=== PATIENT | female | born 1960 | race Caucasian/White ===

== ENCOUNTER 2024-05-10 05:02 | Observation (INO) ==
--- NOTE | 2024-03-31 11:23 | PAT Medication Instructions ---
Medication Instructions Date of Service March 31, 2024 Home Medications cholecalciferol (vitamin D3) 125 mcg (5,000 unit) tablet (Vitamin D3) 125 mcg PO QAM d-mannose 500 mg capsule 2,000 mg PO QAM diclofenac sodium 75 mg tablet,delayed release 75 mg PO BID levothyroxine 112 mcg tablet (Synthroid) 112 mcg PO QAM metformin 500 mg tablet 500 mg PO BID omega-3 fatty acids 500 mg capsule 500 mg PO QAM sertraline 50 mg tablet (Zoloft) 75 mg PO QAM ASK your surgeon for instructions diclofenac sodium 75 mg tablet,delayed release 75 mg PO BID STOP taking 2 weeks before surgery omega-3 fatty acids 500 mg capsule 500 mg PO QAM d-mannose 500 mg capsule 2,000 mg PO QAM DO NOT take the morning of surgery cholecalciferol (vitamin D3) 125 mcg (5,000 unit) tablet (Vitamin D3) 125 mcg PO QAM metformin 500 mg tablet 500 mg PO BID Take morning of surgery With a small sip of water, OTHERWISE NOTHING TO EAT OR DRINK AFTER MIDNIGHT: levothyroxine 112 mcg tablet (Synthroid) 112 mcg PO QAM sertraline 50 mg tablet (Zoloft) 75 mg PO QAM Take evening before surgery metformin 500 mg tablet 500 mg PO BID Other Notes If you have any questions please call us at [phone] or [phone] or [phone] or [phone]
--- NOTE | 2024-04-18 12:27 | Anesthesiology Consultation ---
Date of Service April 18, 2024 Assessment & Plan (1) Encounter for pre-operative examination: - Check BSG AM DOS - Infectious disease screening: Per assessment on 04/18/24: No known recent infectious disease contacts or current infectious disease symptoms. - Outpatient joint assessment: Pt currently scheduled for inpatient pathway. If surgeon requests review for outpatient joint pathway, patient is not recommended candidate for outpatient joint program from anesthesia standpoint based on available information. - PCP note (04/21/24): "Yes" patient medically cleared for surgery. Chart Review Chart Review: Acceptable Risk for Surgery and Patient seen in Pre Admission Testing Teaching & Discussion Pre-Anesthesia Teaching/Discussion Notes: Instructed NPO after midnight before surgery,except medications with 15 cc of water. Medication instructions prov ided according to the PAT guidelines. History Surgery Operation Date: 05/10/24 07:00 Proposed Procedures p Left Total Knee Arthroplasty - Real Jean MD Height/Weight Height: 5 ft 2 in Weight: 113.9 kg Allergies Allergy/AdvReac Type Severity Reaction Status Date / Time No Known Allergies Allergy Verified 03/30/24 14:19 Medications Home Medications Medication Instructions Recorded Confirmed Last Taken cholecalciferol (vitamin D3) 125 125 mcg PO QAM 03/30/24 03/30/24 Unknown mcg (5,000 unit) tablet (Vitamin D3) d-mannose 500 mg capsule 2,000 mg PO QAM 03/30/24 03/30/24 Unknown diclofenac sodium 75 mg 75 mg PO BID 03/30/24 03/30/24 Unknown tablet,delayed release levothyroxine 112 mcg tablet 112 mcg PO QAM 03/30/24 03/30/24 Unknown (Synthroid) metformin 500 mg tablet 500 mg PO BID 03/30/24 03/30/24 Unknown omega-3 fatty acids 500 mg capsule 500 mg PO QAM 03/30/24 03/30/24 Unknown sertraline 50 mg tablet (Zoloft) 75 mg PO QAM 03/30/24 03/30/24 Unknown Past Medical History Medical History Anxiety Arthritis Diabetes mellitus, type 2 History of diverticulitis Hypothyroidism Morbid obesity Sleep apnea BIPAP (compliant) Exercise / Class Metabolic Activity III < 4 Walking/Shop/Light housework (one FS (no CP, + SOB)) Past Family History Family History Other No family history of adverse response to anesthesia Past Surgical History Surgical History H/O arthroscopy of right knee H/O sinus surgery H/O total hysterectomy H/O wrist surgery Left History of cardiac cath 2021- Angiographically normal coronary arteries History of carpal tunnel release Right History of section x2 History of cholecystectomy History of colon resection History of colonoscopy [place] teeth removed Past Anesthesia History No Hx of Anesthesia Complications and No Family Hx of Anesthesia Complications History of PONV No Hx of PONV and No Hx of Motion Sickness Social History Smoking Status: Never smoker Do You Dip or Chew Tobacco: No Hx Alcohol Use: Yes alcohol intake frequency: holidays/special occasions only substance use type: does not use Review of Systems Patient denies chest pain, shortness of breath, dyspnea on exertion, fever, chills, cough, wheezing, palpitations. Physical Exam Vital Signs BP 117/78 P 76 TEMP 98.0 SP02 95%RA RESP 16 Physical Full cervical extension range of motion. Full TMJ range of motion. TMD 3 finger breaths Mallampati Score 3 Dentition: intact, + crown Lungs: clear throughout to auscultation Cardiac: regular rate and rhythm, no murmurs noted Spine: normal Carotid arteries: negative bruit Extremities: trace non-pitting LE edema Lab Results Anesthesia Preop Results Results Anesthesia Widget: WBC 6.82 K/ul (4.8-10.8) 04/18/24 Hgb 12.7 g/dl (12.0-16.0) 04/18/24 Hct 38.0 % (37.0-47.0) 04/18/24 Plt 222 K/uL (130-400) 04/18/24 Na 141 mmol/L (136-145) 04/18/24 K 4.0 mmol/L (3.5-5.1) 04/18/24 Cl 110 mmol/L (98-107) H 04/18/24 CO2 24 mmol/L (21-32) 04/18/24 BUN 26 mg/dl (6-23) H 04/18/24 Creat 0.69 mg/dl (0.6-1.2) 04/18/24 Glucose Level 149 mg/dl (70-99(Fasting)) H 04/18/24 PT 10.5 Seconds (9.0-12.0) 04/18/24 PTT 26 Seconds (21-31) 04/18/24 INR 1.0 (0.9-1.1) 04/18/24 HA1c 6.2 % (4.5-5.6) H 04/18/24 Blood Type O Positive 04/18/24 Antibody Screen NEGATIVE 04/18/24 Testing Electrocardiogram Date: 04/18/24 NSR at 72bpm. "Normal ECG" Chest X-Ray Date: 04/18/24 FINDINGS: No lines and tubes are seen. The cardiomediastinal silhouette is normal. The lungs are clear. No evidence of pleural effusion or pneumothorax. IMPRESSION: No acute chest disease. Echocardiogram Date: 11/12/21 LVEF 55-60%. LV wall motion is normal. No evidence of pericardial effusion. Pericardial fat pad present. Mild MD. Stress Test Date: 11/12/21 Regadenoson pharmacological nuclear stress test with no electrocardiographic evidence of ischemia. Small focus of reversible ischemia at the inferolateral wall of the left ventricle. Subsequent cardiac cath 12/2021- angiographically normal coronary arteries. Cardiac Catheterization Date: 12/13/21 Angiographically normal coronary arteries. Normal EF- 65%. Elevated LV end- diastolic pressure consistent with obesity induced diastolic dysfunction.
[2024-05-10] MEDS: GABAPENTIN 600 MG DOSE PO SCH (05:36)
[2024-05-10] MEDS: ACETAMINOPHEN 500 MG TAB PO SCH ×2 (05:37→13:43)
[2024-05-10] MEDS: FAMOTIDINE 20 MG TAB PO SCH (05:37)
[2024-05-10] MEDS: METOCLOPRAMIDE HCL 10 MG TABLET PO SCH (05:37)
[2024-05-10] MEDS: CeleBREX 200 MG CAP PO SCH (05:37)
[2024-05-10] MEDS: traMADol HCL 50 MG TABLET PO SCH (05:37)
[2024-05-10] MEDS: oxyCODONE HCL 10 MG TABCR (OxyCONTIN) PO SCH (05:37)
[2024-05-10] MEDS: LR 60ML/HR IV SCH (05:42)
[2024-05-10] MEDS: LR 500ML BOLUS, THEN 15ML/HR IV SCH (05:42)
[2024-05-10] MEDS: dexAMETHasone**PF** 10 MG/ML VIAL IV SCH (05:43)
[2024-05-10] MEDS ORDERED: ROPIVACAINE 0.5% 5 MG/ML 30 ML VIAL ONE (06:22)
[2024-05-10] MEDS ORDERED: HYDROmorphone INJ 1 MG/ML SYRINGE IV PRN ×2 (06:35→12:47)
[2024-05-10] MEDS ORDERED: ATROPINE SULFATE 0.1 MG/ML 10ML SYR IV PRN (06:35)
[2024-05-10] MEDS ORDERED: KETOROLAC 30 MG/ML VIAL IV PRN (06:35)
[2024-05-10] MEDS ORDERED: ONDANSETRON INJ 2 MG/ML 2 ML VIAL IV PRN ×2 (06:35→12:47)
[2024-05-10] MEDS ORDERED: ePHEDrine sulfate 50 MG/ML AMP IV PRN (06:35)
[2024-05-10] MEDS ORDERED: BUPIVACAINE 0.5 % 5 MG/1 ML PF 10ML VIAL ONE (06:36)
[2024-05-10] MEDS ORDERED: MIDAZOLAM HCL 1 MG/ML 2ML VIAL ONE (06:38)
[2024-05-10] MEDS ORDERED: LIDOCAINE 2% 2 ML VIAL/AMP(20MG/ML) INFIL ONE (06:49)
[2024-05-10] MEDS ORDERED: PROPOFOL IV EMULSION 10 MG/ML 20 ML VIAL IV ONE ×3 (06:49→09:16)
--- NOTE | 2024-05-10 06:51 | History & Physical Bridge Note ---
Date of Service May 10, 2024 History & Physical Bridge Note I have examined the patient, reviewed the History & Physical and in the interval since the performance of the History & Physical I have noted the following changes of clinical significance: no changes noted
[2024-05-10] MEDS: TRANEXAMIC ACID 1,000 MG **IV Pre-op IV SCH (06:52)
[2024-05-10] MEDS: ROPIV 0.5% 246mg, Ketorolac 30mg, EPINEPHrine 0.5mg in NSS INFIL SCH (08:07)
[2024-05-10] MEDS: VANCOMYCIN HCL 1000MG/20ML VIAL ONE (08:16)
--- NOTE | 2024-05-10 09:55 | Operative Report ---
Post Operative Report Pre & Post Diagnosis Operation Date: 05/10/24 07:00 Pre-Op Diagnosis: Left Knee Osteoarthritis Post-Op Diagnosis: Left Knee Osteoarthritis I identified the patient and participated in the time-out.: Yes Procedure Operation Date: 05/10/24 07:00 Actual Procedures p Left Total Knee Arthroplasty(Left) - Real Jean MD Surgeon Real Jean MD Screw Machine Operator [place] Type Nancy Crouch no resident or fellow available Estimated Blood Loss 10 Findings Consistent with Post-Op Diagnosis Specimens Resected bone and soft tissue left knee Anesthesia Type MAC Spinal Regional Complications none Disposition Accompanied Patient To Recovery: No Disposition: Recovery Room Indications Galina is 63. She has end-stage arthritis of her left knee refractory to nonsurgical treatment. She wishes to have her knee replaced. Description of Procedure Informed consent. Patient identified. She identified the operative site as the left knee. I marked with my initials. A preoperative surgical timeout was performed. A preop dose of IV antibiotics was given. She was taken to the operating room positioned supine on the operating room table. The anesthetic was administered. A tourniquet was applied to the left thigh. A bump under the left hip. A padded bump under the left calf. The leg was prepped and draped in usual sterile fashion. DVT prophylaxis intraoperatively with foot pumps. Postop early mobility mechanical devices and Eliquis. The examination under anesthesia revealed a fixed varus deformity with range of motion 0/5/110 degrees. Limb exsanguinated with the Esmarch. Tourniquet inflated to 275 mmHg. Midline longitudinal incision was made followed by medial parapatellar arthrotomy. Soft tissue on the anterior aspect of the distal femur was resected. A medial release was performed. The retropatellar fat pad was resected. Osteophytes throughout the knee were debrided. There were grade 4 changes in the medial compartment and intact lateral compartment with relatively normal cartilage and meniscus. Patellar osteophytes were noted. The cruciate ligaments were resected and the tibia was subluxated. The meniscal remnants were removed. An intramedullary alignment neha was introduced after drilling a airline transport pilot hole in the proximal tibia. This was aligned to the tibial tubercle and set to take 10 mm off of the intact lateral side corresponding to a 4 mm cut medially. 3 degree block. This was pinned into place and the slope and alignment were verified with the alignment neha with the knee in extension. The tibial cut was made and sized with 3. A airline transport pilot hole was drilled into the distal femur followed by the insertion of the distal femoral cutting guide set at 60 degrees left knee valgus based upon preoperative templating and a 10 mm thick cut. This cut was made and the extension gap was a symmetric 5. The epicondylar axis was marked out. The distal femoral sizing guide was applied and sized to a 4. The pins were drilled in place and the size 4 block was applied and pinned into place. The collateral ligaments were protected and the cuts were made. Osteophytes were removed from the back of the knee both medially and laterally. The box cutting guide was applied lateralized and the box cut was made and the trial femur was applied. Lug holes drilled. The tibia was then prepared with the fixed-bearing revision tibial keelandshortstem. Drilled and punched. Trialing was performed and rotation was set. Good alignment through range of motion and stability with the 6 mm implant. Attention was turned to the patella which measured 20 mm in thickness. The guide was set to preserve 12 mm of bone. The 35 mm patella was selected. The cut was made and the residual patellar thickness was 12 mm. The patella paddle was aligned with the knee slightly flexed and its [place] position and the lug holes were drilled. Patellar tracking was fine with no hands technique. The flexion gap was previously assessed and it was a symmetric 6. After removing the posterior osteophytes the extension gap was also a 6. The trial components were removed. The tibial canal was plugged. Ortho joint mix injected into the back of the knee. Pulsatile lavage was performed to cleanse the bony surfaces. 2 bags of Simplex P cement with 2 g total of vancomycin were mixed for 1 minute and then while in a doughy state smears were placed in the posterior condyle. The components were cemented in place femur tibia and patella. The knee was held in full extension with a trial spacer until the cemented hardened. At this time trialing was again performed. I was able to go up to the 8 mm thick spacer with full extension intact stability at 0 and 90 and trace LCL laxity at 20 degrees knee flexion. The back of the knee was inspected for cement. The tourniquet was let down and meticulous hemostasis was performed. The knee was copiously irrigated and the remainder the Ortho joint mix was injected. The final spacer was inserted and the knee was reduced. The extensor mechanism was closed above the equator the patella with interrupted #2 FiberWire and below the equator with running and interrupted #1 Vicryl. The skin was closed in layers with 0 and 2-0 Vicryl and finally darrell on the skin. A soft sterile dressing was applied Xeroform 4 x 4's ABD soft wrap and a full-length Mehdi wrap. Patient will be sent to the floor with a knee immobilizer. She was awakened from anesthesia difficulty and taken to the recovery room in stable condition. There were no complications. The resected bone and soft tissue was sent for specimen. Counts were correct. Blood loss is estimated to be 10 cc. At the conclusion of the operation spoke to her son and discussed with him my findings and recommendations. J&J attune size 4 left posterior stabilized femur. A size 3 fixed-bearing revision tibial tray and 35 patella. A size 4 x 8 mm thick fixed-bearing insert. The patellar thickness at the end was 21 mm. [place] assisted flexion with extensor mechanism closed was 120 degrees and possibly as much is 125 degrees. The knee was straight at 0 degrees. She will be started on Eliquis the morning following surgery and she will also have her dressing changed to an incisional wound VAC. I attest to the content of the Intraoperative Record and any orders documented therein. Any exceptions are noted below.
--- NOTE | 2024-05-10 10:08 | Operative Report ---
Post Operative Report Pre & Post Diagnosis Operation Date: 05/10/24 07:00 Pre-Op Diagnosis: Left Knee Osteoarthritis Post-Op Diagnosis: Left Knee Osteoarthritis I identified the patient and participated in the time-out.: Yes Procedure Operation Date: 05/10/24 07:00 Actual Procedures p Left Total Knee Arthroplasty(Left) - Real Jean MD Surgeon Real Jean M.D. Sawmill Supervisor Nancy Crouch no resident or fellow available Estimated Blood Loss 10 Findings Consistent with Post-Op Diagnosis Specimens bone and soft tissue Anesthesia Type MAC Spinal Regional Description of Procedure Patient was taken to the operating room placed under spinal anesthesia. Time out was performed. She was given 2 g of IV Ancef and 1 g of IV TXA preoperatively. She was prepped and draped in usual sterile fashion. I was present during the entire case and assisted with positioning, tissue retraction, hemostasis, trialing of implants, implantation of hardware, irrigation, closure and dressings. Please see Dr. Jean's operative report for further details regarding today's procedure. Patient was awakened and transferred to the recovery room in stable condition. I attest to the content of the Intraoperative Record and any orders documented therein. Any exceptions are noted below.
--- NOTE | 2024-05-10 11:41 | XRay Report ---
XR knee LT 1 or 2V routine HISTORY: 63 years-old Female Surgical Post Op left knee arthroplasty COMPARISON: Leg length study radiograph 04/18/2024 TECHNIQUE: 2 views of the left knee FINDINGS: Total joint arthroplasty with patellar resurfacing. Anterior midline skin darrell with expected posto perative soft tissue swelling and deep tissue air. No acute fracture or dislocation. IMPRESSION: Total joint arthroplasty with expected postoperative changes. ACT 112: Negative or not required by law. The above report was generated using voice recognition software. It may contain grammatical, syntax o r spelling errors. Electronically signed by: Jun Gonzales M.D. 05/10/2024 11:39 AM
[2024-05-10] MEDS: ceFAZolin 2000MG 2,000 MG/15 ML SYR IV SCH ×2 (12:17→16:04)
[2024-05-10] MEDS: ORTHO JOINT ANESTHETIC ONE (12:18)
--- OUTSIDE RECORDS SUMMARY | 2024-05-10 12:27 | External Medical Summary | Continuity of Care Document ---
Author Name Unknown Organization [facility] [address] [id number] Address [address] [place] [phone] Encounter [facility] [id number] Date(s): 04/18/24 - 04/18/24 [facility] [address] [facility] [address] [facility] [address] [place] [id number] Encounter Diagnosis Left knee DJD(Discharge Diagnosis) - 04/18/24 Discharge Disposition: Home or Self Care Attending Physician: INNA Crouch, Nancy Almanzar Referring Physician: MD Miranda, Real Mccormack Allergies, Adverse Reactions, Alerts No Known Medication Allergies Medications diclofenac sodium 75 mg oral delayed release tablet Start: 03/21/24 12:55:00 PM EDT Start Date: 03/21/24 Status: Ordered Fish Oil 500 mg oral capsule Start: 03/21/24 12:56:00 PM EDT Start Date: 03/21/24 Status: Ordered fluoride-potassium nitrate 1.1%-5% topical paste Start: 03/21/24 12:54:00 PM EDT Start Date: 03/21/24 Status: Ordered fluticasone 50 mcg/inh nasal spray Start: 03/21/24 12:55:00 PM EDT Start Date: 03/21/24 Status: Ordered metFORMIN 500 mg oral tablet Start: 03/21/24 12:54:00 PM EDT Start Date: 03/21/24 Status: Ordered ONETOUCH ULTRA TEST STRIP Start: 03/21/24 12:54:00 PM EDT, ONETOUCH ULTRA TEST STRIP Start Date: 03/21/24 Status: Ordered sertraline 50 mg oral tablet Start: 03/21/24 12:54:00 PM EDT Start Date: 03/21/24 Status: Ordered Synthroid 112 mcg (0.112 mg) oral tablet Start: 03/21/24 12:54:00 PM EDT Start Date: 03/21/24 Status: Ordered Vitamin D3 125 mcg (5000 intl units) oral capsule Start: 03/21/24 12:56:00 PM EDT Start Date: 03/21/24 Status: Ordered Mental Status 04/18/24 Barriers to Learning one year None evide nt Mandatory Health Literacy Documentation Yes Health Literacy Communication Barriers N ever Primary Language Greenlandic Problem List Condition Confirmation Course Effective Dates Status H ealth Status Informant Osteoarthritis of knees, bilateral Confirmed Active Diagnosis Diagnosis Type Effective Dates Health Status Cl inical Service Informant Left knee DJD Discharge Diagnosis 04/18/24 Non-Specified Procedures Procedure Date Related Diagnosis Body Site Status Abdominal hysterectomy Co mpleted Arthroplasty of the carpomet acarpal joint of the thumb 1 Completed Arthroscopy of knee with med ial meniscectomy 2 Completed Carpal tunnel release 3 C ompleted section 4 Comple nori Cholecystectomy 5 Complet ed History of nasal sinus surgery 6 Completed Partial resection of colon 7 Completed 1left 2Right knee 3Right 4x 2; 1983 and 1987 [address] or 1989 6x 2 right side 712/2018 Vital Signs Most recent to oldest [Reference Range]: 1 Height 161 cm (04/18/24 11:16 AM) Patient Weight 113 kg (04/18/24 11:16 AM) Body Mass Index 43.59 kg/m2 (04/18/24 11:16 AM) Temperature [36.5-37.9 DegC] 36.6 DegC (04/18/24 11:16 AM) Heart Rate 68 bpm (04/18/24 11:16 AM) Blood Pressure 140/70mmHg (04/18/24 11:16 AM) Cuff Pulse Pressure 70 mmHg (04/18/24 11:16 AM) Social History Social History Type Response Smoking Status Never smoked cigaret marlin Sex Female Pre-OP H & P * INNA Crouch, Nancy R: PERFORM, MODIFY, MODIFY, MODIFY Event Display: Pre-OP H & P Authored Date: [id number] Name:LIZZY JUNG Patient Number:[id number] :[id number] Date of Service:04/18/2024 Chief Complaint L TKA pre op History of Present Illness [id number] yearPaolanayenancy presents today fora preoperativehistory and physical. She is scheduled to have a left total knee arthroplasty by Dr. Jean on May 10, 2024. She has had many years of ongoing bilateral knee pain, (LEFT > Right), with no known initial injury causing this. The patient has seen Dr. Schuler, [facility], where she had a meniscus tear repair in the right knee. The patient has had a history of cortisone injections (Most recently 10/2023, about 10 in each knee total with about 3 months of relief each), and two rounds of Euflexxa bilaterally, most recently on 02/16/2024. The Euflexxa typically has helped, but she continues to have LEFT medial knee pain though her right knee has much less pain. She was told by Dr. Schuler,who retired, that she could not have TKA due to weight. She came here for another opinion. She has tried weight loss over the years, with minimal success and no change in her knee pain. The patient has pain in both knees when walking, about a 5/10 even with the injections. She has pain when sitting, but only around a 3/10 in comparison. She hasache in the knees when sleeping, about a 4/10. She states that she is unsure about the presence of swelling. The patient has T2DM and Thyroid problems. The patient took Diclofenac orally from a [facility] that [facility], as well as Tylenol. She has not used a cane or a brace. She has not had a history of embolisms,bleeding, or blood clot disorders. The patient previously had chronic UTI, but has been taking D-mannose supplements. No history of STAPH infections or MRSA. She has not had a bone density check in the last 2-3 years. The patient works as a medical billing and coding specialist. Due to her failure of conservative treatment and progressively worsening symptoms, she wishes to proceed with a left total knee arthroplasty. Review of Systems Denies any recent cough, cold, fevers, chills or flulike symptoms. She denies any lightheadedness, dizziness, syncopal episodes, headaches, migraines or seizures. Denies any bleeding or clotting disorders or history of DVT or pulmonary embolism. Denies any recent hospitalizations. Denies any history of metal sensitivity, latex allergy or MRSA. Denies any shortness of breath or chest pain. Denies abdominal pain, heartburn, indigestion, nausea, vomiting, diarrhea or constipation. Denies any urinary tract infections. Denies any hearing or vision changes. Denies any dental problems. Physical Exam Vitals & Measurements T:36.6C HR:68(Monitored) BP:140/70 SpO2:97% HT:161cm WT:113.000kg(Dosing) WT:113kg BMI:43.59 BMI:43.59 kg/m2 Vitals:Last Updated 04/18/24 11:16 Date Temp BP Location Pulse RR SpO2 Pain 04/18/24 36.6 140/70 68 97 3 03/21/24 5 Height and Weight:Last Updated 04/18/24 11:16 Date BMI Wt(kg) Wt(lb) Method Ht(cm) (ft-in) Method 04/18/24 43.59 113 249 Standing Scale 161 5-3 03/21/24 44.1 112.2 247 Standing Scale 159.5 5-3 General:Well-dressed, well-nourished. Normal mood and affect. Alert and oriented x3. HEENT:Head: Atraumatic, normocephalic. Eyes: Extraocular movements intact, pupils equal round and reactive to light, sclera normal. Ears: Ears grossly normal, TMs are clear normal light reflex.Nose: Nares are patent bilaterally. Throat: Oropharynx clear mucous membranes moist good dentition uvula midline. Neck:Supple, no lymphadenopathy, nontender palpation, full range of motion. Cardiac:Regular rate and rhythm, normal S1, S2. No murmurs, rubs or gallops appreciated. Lungs:Clear to auscultation bilaterally. No adventitious sounds. No accessory muscle use. Abdomen:Soft, nontender, nondistended, normal bowel sounds heard in all 4 quadrants. Extremities: Focusing on the patient'slower extremities: GaitNormal NormalAlignment 1+DP and1+PT pulses Capillary refill less than 2 seconds Sensationintact to light touch Motor strength:5/5Knee flexion and extension; ankle plantarflexion, dorsiflexion, inversion, and eversion. Focusing on the patient's LEFT lower extremity Knee (left)ROM: 0/ 0/ 115 Hip ROM:Painless,Equal to other side TRACE MCL Laxity at 20 degrees knee flexion -NEGATIVE el Posterior Drawer Stable NO Effusion NO Pretibial edema NO leg wounds MEDIAL Jointline tenderness Painless movement of the hip Focusing on the patient's RIGHT lower extremity Knee (right) ROM: 0/ 0/ 125 TRACE MCL Laxity at 20 degrees knee flexion -NEGATIVE el Posterior Drawer Stable NO Effusion NO Pretibial edema NO leg wounds Diagnostic Results 5views of thebilateral kneesobtained today and personally interpreted by me show left knee medial joint space narrowing. Bone spurs in both knees. There is medial sided arthritis bilaterally. Right knee joint space bone spurring, while left knee is [id number]. Bilateral medial compartment arthritis, left>right. No bone or soft tissue swelling. Assessment/Plan Left knee DJD Patient is scheduled for an elective left total knee arthroplasty with Dr. Jean on May 10, 2024. Risks and complications of the procedure were explained to the patient and include but are not limited to infection, pain, bleeding, scarring, nerve or blood vessel damage, wound problems, weakness, stiffness, incomplete relief of symptoms, hardware failure, hardware loosening, wear, fracture, tendon or ligament injury, blood clots, embolisms, heart attack, stroke and . All questions were answered and informed consent was obtained. She will have preadmission testing later today which she will obtain a preoperative CBC, BMP, PTT, PT, INR, HGB A1C, chest x-ray, EKG, type and screenand leg length x-ray., Home medications were reviewed. She was instructed on the usage of the CHG wipes preoperatively. She was given a prescription to obtain a rolling walker prior to her procedure. She does have a cane for use at home. We will prescribe most likely oxycodone and tramadol at the time of discharge from the hospital for postoperative pain control.The [place] PDMP was checked with no issues identified. We will plan to use Eliquis 2.5 mg p.o. twice daily for DVT prophylaxisfor 2 to 4 weeks after surgery. She is going to attend outpatient physical therapy closer to her home. She will follow-up as scheduled with Dr. Jean at 2 weeks postoperative for staple removal. She would like to go home with home health but will need an agency closer to her home. She knows to call with any further problems, questions or concerns. All questions were answered. She understands and agrees with the plan. This chart was completed utilizing [employer] voice recognition software. Grammatical errors, random word insertions, pronoun errors, and in complete sentences are an occasional consequence of the system. Any questions or concerns about the content, text, or information contained within the body of this dictation should be addressed directly to the provider for clarification. Problem List/Past Medical History Ongoing Osteoarthritis of knees, bilateral Type II Diabetes Sleep apnea with use of CPAP machine Anxiety TMJ Osteoarthritis of neck Osteoarthritis of lumbar spine History of piriformis syndrome/sciatica Obesity Procedure/Surgical History History of nasal sinus surgeryArthroplasty of the carpometacarpal joint of the thumbCarpaltunnel releaseCholecystectomyCesarean sectionAbdominal hysterectomyArthroscopy of knee with medial meniscectomyPartial resection of colon Medications Home cholecalciferol(Vitamin D3 125 mcg (5000 intl units) oral capsule) diclofenac(diclofenac sodium 75 mg oral delayed release tablet) fluoride-potassium nitrate topical(fluoride-potassium nitrate 1.1%-5% topical paste) fluticasone nasal(fluticasone 50 mcg/inh nasal spray) levothyroxine(Synthroid 112 mcg (0.112 mg) oral tablet) metFORMIN(metFORMIN 500 mg oral tablet) omega-3 polyunsaturated fatty acids(Fish Oil 500 mg oral capsule) sertraline(sertraline 50 mg oral tablet) unlisted medication([employer] ULTRA TEST STRIP) D-Mannose 2000 mg daily Allergies No Known Medication Allergies Social History Denies tobacco use; currently or in the past. She drinks 0-1 alcoholic drinks per week. She denies any recreational drug use. She lives alone but her son is going to come stay with her as long as he needs too. She does not have a walker for use at home. She does have a cane. Family History Noncontributory. Electronic Signature on File Electronically Reviewed/Signed by: Nancy Crouch PA-C Author Signature Dt/Tm:04/19/2024 09:55AM Division of Sports Medicine Electronically Reviewed/Signed by: Nancy Crouch PA-C Cosigner Signature Dt/Tm: 04/19/2024 11:02 AM Division of Sports Medicine Electronically Reviewed/Signed by: Real Jean MD Cosigner Signature Dt/Tm: 04/19/2024 12:33 PM Division of Sports Medicine [facility]
[2024-05-10] MEDS ORDERED: MAGNESIUM HYDROXIDE SUSP 30 ML UDC PO PRN (12:47)
[2024-05-10] MEDS ORDERED: NALOXONE HCL 0.4 MG/1 ML VIAL/CARP IV PRN (12:47)
[2024-05-10] MEDS ORDERED: bisacodyL 10 MG SUPP PR PRN (12:47)
[2024-05-10] MEDS ORDERED: PHARMACY GLYCEMIC MGMT CONSULT PRN (12:47)
[2024-05-10] MEDS ORDERED: hydrALAZINE HCL 20 MG/ML VIAL IV PRN (12:47)
[2024-05-10] MEDS ORDERED: traMADol HCL 50 MG TABLET PO PRN (12:47)
[2024-05-10] MEDS: SODIUM CHLORIDE 0.9% 1,000 ML IV SCH (13:32)
[2024-05-10] MEDS: KETOROLAC TROMETHAMINE 15 MG/ML VIAL IV SCH (13:43)
[2024-05-10] MEDS ORDERED: GLUCOSE 40% GEL 15 GM TUBE PO PRN (14:00)
[2024-05-10] MEDS ORDERED: GLUCOSE 10 TAB/TUBE PO PRN (14:00)
[2024-05-10] MEDS ORDERED: CARBOHYDRATES FOR HYPOGLYCEMIA PO PRN (14:00)
[2024-05-10] MEDS ORDERED: GLUCAGON FOR INJ 1 MG VIAL IM PRN (14:00)
[2024-05-10] MEDS ORDERED: DEXTROSE 50% 50 ML SYRINGE IV PRN (14:00)
--- NOTE | 2024-05-10 14:00 | Pharmacy Report ---
Pharmacy Glycemic Short Note 2 - Date of Service May 10, 2024 - Glycemic Short BSG Results (Last 24 hours): 05/10/24 05/10/24 05/10/24 05:31 09:58 12:46 POC Glucose 138 H 216 H 210 H OUTPATIENT ANTIDIABETIC REGIMEN: * Metformin 500 mg PO BID * A1c = 6.2% (04/18/24) ASSESSMENT: * Galina is s/p left total knee arthroplasty. BSG of 210 mg/dL upon arrival to the floor. * She received dexamethasone 10 mg IV pre-op and is ordered a one time PO dose for 7/10 AM. Anticipate steroid induced hyperglycemia. * Will give a one time dose of Lantus 26 units SC now and start weight based/stress 3 Novolog. * Insulin doses based on adjusted body weight. Will order overnight checks at 00 and 04 to ensure patient was not underdosed. PLAN FOR INPATIENT GLYCEMIC CONTROL: * Hold outpatient oral diabetes medications * Basal insulin * Lantus 26 units SC x 1 * Bolus insulin * NovoLog per scale ACHS or Q6hrs while NPO * Goal Range: Low 110 mg/dL - High 140 mg/dL * Correction Factor: 20 mg/dL/unit * Nutritional / Prandial insulin per carb ratio of 1 unit per 7 grams CHO consumed
--- NOTE | 2024-05-10 14:07 | Anesthesiology Progress Note ---
Date of Service May 10, 2024 Anesthesia Post Procedure Vital Signs Vital Signs: Temp Pulse Pulse Resp BP Pulse Ox O2 Del Method 05/10/24 13:25 36.4 C L 88 18 122/79 97 Room Air 05/10/24 13:06 36.6 C 86 18 123/80 96 Room Air 05/10/24 13:00 37.2 C 84 18 119/77 97 Room Air 05/10/24 12:05 84 20 119/77 97 Room Air 05/10/24 11:35 79 21 124/77 95 Room Air 05/10/24 11:25 82 24 120/75 96 Room Air 05/10/24 11:15 80 24 123/80 95 Room Air 05/10/24 11:05 36.4 C L 82 24 115/74 96 Room Air 05/10/24 10:55 86 22 104/61 93 Room Air 05/10/24 10:45 83 23 117/72 96 Room Air 05/10/24 10:35 83 25 H 119/73 96 Room Air 05/10/24 10:25 85 25 H 110/73 95 Room Air 05/10/24 10:15 86 24 126/75 94 Oxymask 05/10/24 10:05 87 26 H 118/78 94 Oxymask 05/10/24 09:55 37.2 C 90 20 125/77 92 Oxymask 05/10/24 05:27 Room Air 05/10/24 05:27 36.6 C 92 H 20 154/91 H 96 Room Air O2 Flow Rate 05/10/24 13:25 05/10/24 13:06 05/10/24 13:00 05/10/24 12:05 05/10/24 11:35 05/10/24 11:25 05/10/24 11:15 05/10/24 11:05 05/10/24 10:55 05/10/24 10:45 05/10/24 10:35 05/10/24 10:25 05/10/24 10:15 5 05/10/24 10:05 5 05/10/24 09:55 5 05/10/24 05:27 05/10/24 05:27 Pain Intensity Left Knee: Pain Intensity: 10 Transfer of Care Handoff Completed per policy Notes Mental Status: alert / awake / arousable Patient Amnestic to Procedure: Yes Nausea / Vomiting: adequately controlled Pain: adequately controlled Airway Patency, RR, SpO2: stable & adequate BP & HR: stable & adequate Hydration State: stable & adequate Neuraxial Anesthesia: was administered and sensory block is resolving Anesthetic Complications: no major complications apparent
[2024-05-10] MEDS: LANTUS PER UNIT CHARGE SC ONE (14:19)
[2024-05-10] MEDS: INSULIN ASPART PER UNIT CHARGE SC SCH ×2 (14:20→23:27)
[2024-05-10] MEDS: HYDROmorphone INJ 0.5 MG/0.5 ML SYR IV PRN (15:57)
[2024-05-10] MEDS: TRANEXAMIC ACID / 0.7% NACL 1,000 MG/100 ML BAG IV SCH (16:05)
--- NOTE | 2024-05-10 16:31 | Orthopedic Progress Note ---
Date of Service May 10, 2024 Assessment & Plan (1) Knee joint replacement status: Plan: Doing well. Neurovascular intact. Pain controlled. X-rays show good positioning of the components and no evidence of complication. Plan for routine postop total knee care. Elevate ice. PT OT. Eliquis beginning in the morning. Glycemic control consult. Admission and Anticipated Discharge Date Admission Date: May 10, 2024 Subjective Doing well pain is well-controlled. Surgical results discussed. X-ray reviewed. Physical Exam Physical Exam: 5- out of 5 ankle and toe plantarflexion dorsiflexion inversion and eversion strength. Dressing clean dry and intact. Sensation is intact in the toes. DP and PT pulses are 1+. The leg is elevated. Results & Data Vital Signs (Past 12 Hours) Vital Signs Temp Pulse Pulse Resp BP Pulse Ox O2 Del Method 05/10/24 15:33 36.7 C 90 18 139/82 95 Room Air 05/10/24 14:24 36.4 C L 94 H 18 120/75 95 Room Air 05/10/24 13:25 36.4 C L 88 18 122/79 97 Room Air 05/10/24 13:06 36.6 C 86 18 123/80 96 Room Air 05/10/24 13:00 37.2 C 84 18 119/77 97 Room Air 05/10/24 12:05 84 20 119/77 97 Room Air 05/10/24 11:35 79 21 124/77 95 Room Air 05/10/24 11:25 82 24 120/75 96 Room Air 05/10/24 11:15 80 24 123/80 95 Room Air 05/10/24 11:05 36.4 C L 82 24 115/74 96 Room Air 05/10/24 10:55 86 22 104/61 93 Room Air 05/10/24 10:45 83 23 117/72 96 Room Air 05/10/24 10:35 83 25 H 119/73 96 Room Air 05/10/24 10:25 85 25 H 110/73 95 Room Air 05/10/24 10:15 86 24 126/75 94 Oxymask 05/10/24 10:05 87 26 H 118/78 94 Oxymask 05/10/24 09:55 37.2 C 90 20 125/77 92 Oxymask 05/10/24 05:27 Room Air 05/10/24 05:27 36.6 C 92 H 20 154/91 H 96 Room Air O2 Flow Rate 05/10/24 15:33 05/10/24 14:24 05/10/24 13:25 05/10/24 13:06 05/10/24 13:00 05/10/24 12:05 05/10/24 11:35 05/10/24 11:25 05/10/24 11:15 05/10/24 11:05 05/10/24 10:55 05/10/24 10:45 05/10/24 10:35 05/10/24 10:25 05/10/24 10:15 5 05/10/24 10:05 5 05/10/24 09:55 5 05/10/24 05:27 05/10/24 05:27
[2024-05-10] MEDS: DOCUSATE SODIUM 100 MG CAP PO SCH (21:18)
[2024-05-10] MEDS: SENNA 8.6 MG TAB PO SCH (21:18)
[2024-05-11] MEDS: LEVOTHYROXINE SODIUM 112 MCG TABLET PO SCH (06:06)
[2024-05-11 07:51] LABS: Hematocrit (blood only) 33.2 % (37.0-47.0); Hemoglobin 11.2 g/dl (12.0-16.0); Mean Corpuscular Hemoglobin 30.7 pg (25.0-34.0); Mean Corpuscular Hgb Conc 33.7 g/dL (32.0-36.0); Mean Platelet Volume 10.2 fL (9.4-12.4); Platelet Count 198 K/uL (130-400); RDW Coefficient of Variation 13.2 % (11.5-14.5); RDW Standard Deviation 43.5 fL (36.4-46.3); Red Blood Count 3.65 M/uL (4.20-5.40)
[2024-05-11] MEDS: MULTIVITAMIN TAB PO SCH (08:12)
[2024-05-11] MEDS: SERTRALINE HCL 50 MG TABLET PO SCH (08:12)
[2024-05-11] MEDS: CHOLECALCIFEROL 125 MCG (5,000 UNITS) TAB PO SCH (08:12)
[2024-05-11] MEDS: APIXABAN 2.5 MG TAB PO SCH (08:13)
[2024-05-11] MEDS: dexAMETHasone 4 MG TAB PO SCH (08:13)
[2024-05-11 08:15] LABS: BUN Creatinine Ratio 25.8 (10-20); Calcium 8.6 mg/dl (8.6-10.3); Creatinine Clr Calc Pharmacy 108.7 ml/min; Est GFR (African American) 110.4 ml/min; Est GFR (Non-African American) 95.3 ml/min; Potassium 3.9 mmol/L (3.5-5.1)
[2024-05-11] MEDS: oxyCODONE HCL IR 5 MG TAB (IMMEDIATE RELEASE) PO PRN (08:16)
[2024-05-11] MEDS ORDERED: NON-FORMULARY MEDICATION (D-Mannose 500 mg Capsule) PO SCH (09:00)
[2024-05-11] MEDS: LANTUS PER UNIT CHARGE SC ONE (09:59)
--- NOTE | 2024-05-11 10:33 | Pharmacy Report ---
Pharmacy Glycemic Short Note 2 - Date of Service May 11, 2024 - Glycemic Short BSG Results (Last 24 hours): 05/10/24 05/10/24 05/10/24 12:46 16:41 20:48 Glucose POC Glucose 210 H 191 H 151 H 05/10/24 05/11/24 05/11/24 23:19 03:38 07:09 Glucose 172 H POC Glucose 143 H 139 H 05/11/24 07:54 Glucose POC Glucose 146 H OUTPATIENT ANTIDIABETIC REGIMEN: * Metformin 500 mg PO BID * A1c = 6.2% (04/18/24) ASSESSMENT: 05/11 * POD 1. Dexamethasone x1 additional dose today, but ordered as PO. Ordered T2DM * BSG's trended down gradually and nicely from high of 210 mg/dL yesterday. * Lantus not at steady state - will reduce dose and scale for this evening. * No change to Novolog for now as patient will also receive dexamethasone this AM 05/10 * Galnia is s/p left total knee arthroplasty. BSG of 210 mg/dL upon arrival to the floor. * She received dexamethasone 10 mg IV pre-op and is ordered a one time PO dose for 05/11 AM. Anticipate steroid induced hyperglycemia. * Will give a one time dose of Lantus 26 units SC now and start weight based/stress 3 Novolog. * Insulin doses based on adjusted body weight. Will order overnight checks at 00 and 04 to ensure patient was not underdosed. PLAN FOR INPATIENT GLYCEMIC CONTROL: * Hold outpatient oral diabetes medications * Basal insulin * Lantus 10 units SC x 1 this AM. Additional 0-10 units tonight based on BSG * Bolus insulin * NovoLog per scale ACHS or Q6hrs while NPO * Goal Range: Low 110 mg/dL - High 140 mg/dL * Correction Factor: 20 mg/dL/unit * Nutritional / Prandial insulin per carb ratio of 1 unit per 7 grams CHO consumed
--- NOTE | 2024-05-11 11:15 | Orthopedic Progress Note ---
Date of Service May 11, 2024 Assessment & Plan (1) Knee joint replacement status: Plan: Postop day 1-status post left total knee arthroplasty May be out of bed, weight-bear as tolerated with the assistance of a walker. May discontinue her knee immobilizer today since she can independently straight leg raise. PT and OT as ordered. Continue home medications. Migel started this morning for DVT prophylaxis. She is also had teds stockings and AV impulse boots while in the hospital. Continue regular diet. Pain medication as prescribed. Prevena wound VAC applied. Leave in place for [address] Jean present for today's visit. Plans for discharge to home later today if safe in PT and OT. Case management involved with disposition needs and to confirm home health arrangements. Follow-up as scheduled as an outpatient. All questions were answered today. She knows to call with any further problems, questions or concerns. Admission and Anticipated Discharge Date Admission Date: May 10, 2024 Subjective Patient doing well. Sitting up in chair. Just completed occupational therapy. Minimal pain in left knee. Has been up with a walker. Feels overall that she is doing well. Denies any postoperative nausea, vomiting, chest pain or shortness of breath, lightheadedness or dizziness. Tolerating regular diet. Physical Exam Musculoskeletal: Exam of her left knee: Postoperative dressings were removed. Incision is clean, dry and intact. Mary are retained. Minimal bloody drainage on dressings. No active bleeding. No effusion to the left knee or prepatellar bursa. She is able to actively independently straight leg raise her left leg. Full ankle range of motion with mild distal edema. Distal pulses are 1+. Sensation is normal throughout the left leg. Strength of the left ankle is 5/5. Tolerates logrolling of the left hip. She can flex her knee to about 50 degrees comfortably today. She can rest her foot on the floor while sitting in the chair. Calf is supple and nontender. Her incision was cleansed with a sterile saline wipe and dried. Skin-Prep was utilized and a Prevena wound VAC was applied over the incision. Results & Data Vital Signs (Past 12 Hours) Vital Signs Temp Pulse Resp BP Pulse Ox O2 Del Method 05/11/24 08:19 36.7 C 80 15 138/76 97 Room Air 05/11/24 07:30 Room Air 05/11/24 06:24 36.5 C 82 18 137/84 96 Room Air 05/11/24 03:37 36.8 C 72 18 127/78 98 Room Air 05/10/24 23:21 36.9 C 81 18 109/68 96 Room Air Laboratory Results 05/11/24 05/11/24 05/11/24 Range/Units 07:54 07:09 03:38 WBC 10.50 (4.8-10.8) K/ul RBC 3.65 L (4.20-5.40) M/uL Hgb 11.2 L (12.0-16.0) g/dl Hct 33.2 L (37.0-47.0) % MCV 91.0 (80.0-100.0) fL MCH 30.7 (25.0-34.0) pg MCHC 33.7 (32.0-36.0) g/dL RDW Std Deviation 43.5 (36.4-46.3) fL RDW Coeff of Brooks 13.2 (11.5-14.5) % Plt Count 198 (130-400) K/uL MPV 10.2 (9.4-12.4) fL Sodium 141 (136-145) mmol/L Potassium 3.9 (3.5-5.1) mmol/L Chloride 111 H (98-107) mmol/L Carbon Dioxide 22 (21-32) mmol/L Anion Gap 8 (3-11) BUN 16 (6-23) mg/dl Creatinine 0.62 (0.6-1.2) mg/dl Est Cr Clr Drug Dosing 108.7 ml/min Est GFR ( Amer) 110.4 ml/min Est GFR (Non-Af Amer) 95.3 ml/min BUN/Creatinine Ratio 25.8 H (10-20) Glucose 172 H (70-99(Fasting)) mg/dl POC Glucose 146 H 139 H (70-99) mg/dl Calcium 8.6 (8.6-10.3) mg/dl 05/10/24 05/10/24 05/10/24 Range/Units 23:19 20:48 16:41 WBC (4.8-10.8) K/ul RBC (4.20-5.40) M/uL Hgb (12.0-16.0) g/dl Hct (37.0-47.0) % MCV (80.0-100.0) fL MCH (25.0-34.0) pg MCHC (32.0-36.0) g/dL RDW Std Deviation (36.4-46.3) fL RDW Coeff of Brooks (11.5-14.5) % Plt Count (130-400) K/uL MPV (9.4-12.4) fL Sodium (136-145) mmol/L Potassium (3.5-5.1) mmol/L Chloride (98-107) mmol/L Carbon Dioxide (21-32) mmol/L Anion Gap (3-11) BUN (6-23) mg/dl Creatinine (0.6-1.2) mg/dl Est Cr Clr Drug Dosing ml/min Est GFR ( Amer) ml/min Est GFR (Non-Af Amer) ml/min BUN/Creatinine Ratio (10-20) Glucose (70-99(Fasting)) mg/dl POC Glucose 143 H 151 H 191 H (70-99) mg/dl Calcium (8.6-10.3) mg/dl 05/10/24 Range/Units 12:46 WBC (4.8-10.8) K/ul RBC (4.20-5.40) M/uL Hgb (12.0-16.0) g/dl Hct (37.0-47.0) % MCV (80.0-100.0) fL MCH (25.0-34.0) pg MCHC (32.0-36.0) g/dL RDW Std Deviation (36.4-46.3) fL RDW Coeff of Brooks (11.5-14.5) % Plt Count (130-400) K/uL MPV (9.4-12.4) fL Sodium (136-145) mmol/L Potassium (3.5-5.1) mmol/L Chloride (98-107) mmol/L Carbon Dioxide (21-32) mmol/L Anion Gap (3-11) BUN (6-23) mg/dl Creatinine (0.6-1.2) mg/dl Est Cr Clr Drug Dosing ml/min Est GFR ( Amer) ml/min Est GFR (Non-Af Amer) ml/min BUN/Creatinine Ratio (10-20) Glucose (70-99(Fasting)) mg/dl POC Glucose 210 H (70-99) mg/dl Calcium (8.6-10.3) mg/dl
--- NOTE | 2024-05-11 11:20 | Discharge Summary ---
Date of Service May 11, 2024 Discharge Data Procedures Performed Operation Date: 05/10/24 07:00 Actual Procedures p Left Total Knee Arthroplasty(Left) - Real Jean MD Hospital Course (1) Knee joint replacement status: Patient was kept in observation at [facility] after undergoing an elective left total knee arthroplasty with Dr. Jean on May 10, 2024. Her surgery was performed with spinal anesthesia, peripheral nerve block and IV sedation. She tolerated the procedure well without any intraoperative complications. Preoperatively she was given 2 g of IV Ancef which was continued for 24 hours after her procedure. She was also given 1 g of IV TXA for bleeding prophylaxis which was repeated 6 hours after her procedure. In the recovery room she had an x-ray of her left knee which showed a stable left knee arthroplasty with no evidence of fractures or acute bony abnormality. Postoperatively, she was allowed out of bed, weight-bear as tolerated with the assistance of a walker and a knee immobilizer on her left leg when ambulating. Her home medications were continued. She was given Eliquis 2.5 mg p.o. twice daily which started on postoperative day 1. She also had thigh-high HECTOR stockings and AV impulse boots during her inpatient stay for DVT prophylaxis. She tolerated regular diet during her inpatient stay. Her vital signs remained stable. Lab work was within normal limits and as expected postoperative from a total knee. On postoperative day 1 her dressings were changed and a Prevena wound VAC was applied to the left knee. She was given instructions on how to care for this. She was seen evaluated by physical therapy and Occupational Therapy and was deemed safe for discharge to her home. She is a walker to assist with ambulation. Pain medication was prescribed and she had available IV Dilaudid, oxycodone, tramadol and Tylenol for postoperative pain control. Discharge instructions were reviewed. All questions were answered. She was discharged to her home in stable condition on May 11, 2024.
[2024-05-11] MEDS ORDERED: LANTUS PER UNIT CHARGE SC ONE (21:00)
== END 2024-05-11 12:46 | disposition home health service (06) ==
LOC: PACUINP 05:02 → ASU 05:02 → 3E 12:24